=== PATIENT | male | born 1945 | race Asian ===

== ENCOUNTER 2022-07-30 08:24 | Emergency (ER) | payer MEDICARE, OTHER ==
[~2022-07-30] VITALS: Ht 167.6 cm; Wt 60.1 kg
[~2022-07-30 08:24] MED LIST: ATOR20TA65 PO; CHOL25TA4 PO; FERR325T23 PO; FOLI-130 PO; INSU100V SQ; METF-446 PO; QUET100T34 PO; RISP1TAB48 PO; RISP2TAB86 PO; SITA50 PO; TRAZ-257 PO
[2022-07-30] MEDS ORDERED: OMEG100015 PO (09:03)
[2022-07-30] MEDS ORDERED: ASCO500 PO (09:03)
[2022-07-30] MEDS ORDERED: ZINC50TA80 PO (09:03)
[2022-07-30 09:19] LABS: BASOPHILS % (AUTO) 0.4 % (0.0-2.0); EOSINOPHILS % (AUTO) 0.1 % (1.0-6.0); HEMATOCRIT 36.7 % (41-53); HEMOGLOBIN 12.2 g/dL (13.5-17.5); LYMPHOCYTES # (AUTO) 0.7 K/uL (1.0-4.8); LYMPHOCYTES % (AUTO) 6.1 % (22.0-44.0); MEAN CORPUSCULAR HEMOGLOBIN 30.7 pg (26.0-34.0); MEAN CORPUSCULAR HGB CONC 33.3 G/dL (31.0-37.0); MEAN CORPUSCULAR VOLUME 92 fL (80-100); MONOCYTES # (AUTO) 0.9 K/uL (0.1-1.0); MONOCYTES % (AUTO) 8.4 % (2.0-9.0); NEUTROPHILS # (AUTO) 9.3 K/uL (1.8-7.7); PLATELET COUNT (AUTO) 210 K/uL (150-450); RED BLOOD CELL COUNT(AUTO) 3.98 MIL/uL (4.50-5.90); RED CELL DISTRIBUTION WIDTH 13.5 % (11.5-14.5)
[2022-07-30 09:30] LABS: ANION GAP 8 mmol/L (8-16); CALCIUM, TOTAL 9.4 mg/dL (8.8-10.5); CARBON DIOXIDE 28 mmol/L (22-29); CHLORIDE 94 mmol/L (98-107); CREATININE 0.71 mg/dL (0.60-1.30); GLOMERULAR FILTR. RATE CALC > 60 mL/min (>60); GLUCOSE,RANDOM 158 mg/dL (70-110); POTASSIUM 3.4 mmol/L (3.5-5.1); SODIUM SERUM 130 mmol/L (136-145); UREA NITROGEN, BLOOD 10 mg/dL (7-18)
[2022-07-30 09:35] LABS: ALANINE AMINOTRANSFERASE 21 U/L (12-78); ALBUMIN 3.7 g/dL (3.4-5.0); ALKALINE PHOSPHATASE 54 U/L (46-116); ASPARTATE AMINOTRANSFERASE 19 U/L (15-37); BILIRUBIN,TOTAL 0.8 mg/dL (0.1-1.0); TOTAL PROTEIN, SERUM 8.2 g/dL (6.4-8.2)
[2022-07-30 10:06] LABS: APPEARANCE,URINE CLEAR (CLEAR); BILIRUBIN,URINE NEGATIVE (NEGATIVE); GLUCOSE, URINE (UA) 70-100 mg/dL (NEGATIVE); LEUKOCYTE ESTERASE ,URINE NEGATIVE (NEGATIVE); NITRATE,URINE NEGATIVE (NEGATIVE); OCCULT BLOOD,URINE TRACE (NEGATIVE); PH,URINE 5.5 (5.0-8.0); PROTEIN,URINE NEGATIVE (NEGATIVE); SPECIFIC GRAVITIY, URINE 1.006 (1.003-1.030); UROBILINOGEN,URINE <=1.0 mg/dL (<=1.0)
[2022-07-30 10:12] LABS: AMPHET/METH SCREEN,URINE NEGATIVE (NEGATIVE); BARBITURATE SCREEN, URINE NEGATIVE (NEGATIVE); BENZODIAZEPINES SCREEN,URINE NEGATIVE (NEGATIVE); CANNABINOID SCREEN,URINE NEGATIVE (NEGATIVE); COCAINE SCREEN,URINE NEGATIVE (NEGATIVE); METHADONE SCREEN, URINE NEGATIVE (NEGATIVE); OPIATE SCREEN,URINE NEGATIVE (NEGATIVE); PHENCYCLIDINE SCREEN,URINE NEGATIVE (NEGATIVE)
[2022-07-30 10:25] LABS: BACTERIA,URINE None Seen /HPF (None Seen); RBC,URINE None Seen /HPF (0-2); SQUAMOUS EPITHELIAL CELL,UR None Seen /LPF (None Seen); WBC,URINE None Seen /HPF (0-5)
[2022-07-30 15:00] VITALS: BP 146/81
== END 2022-07-30 15:32 ==
LOC: EMS 08:27
DX: M25.511 Pain in right shoulder (principal); E11.9 Type 2 diabetes mellitus without complications; I10 Essential (primary) hypertension; F20.0 Paranoid schizophrenia; W19.XXXA Unspecified fall, initial encounter; Y93.89 Activity, other specified; Y92.89 Other specified places as the place of occurrence of the external cause; Y99.8 Other external cause status
CPT/HCPCS: 99285; 70450; 71045; 80053; 82962; 84484; 85025; 36415; 73030; 93005; 81001; 80307 ×2; G0480

== ENCOUNTER 2022-08-02 15:25 | Inpatient (IN) | payer MEDICARE, MEDICAID ==
[~2022-08-02] VITALS: Ht 170.2 cm; Wt 62.7 kg
[~2022-08-02 15:25] MED LIST changes: +ASCO500 PO; +OMEG100015 PO; -RISP2TAB86 PO; +ZINC50TA80 PO
[2022-08-02 17:19] LABS: BASOPHILS % (AUTO) 0.5 % (0.0-2.0); EOSINOPHILS % (AUTO) 3.3 % (1.0-6.0); HEMATOCRIT 41.3 % (41-53); HEMOGLOBIN 13.7 g/dL (13.5-17.5); LYMPHOCYTES # (AUTO) 1.1 K/uL (1.0-4.8); LYMPHOCYTES % (AUTO) 13.4 % (22.0-44.0); MEAN CORPUSCULAR HEMOGLOBIN 30.7 pg (26.0-34.0); MEAN CORPUSCULAR HGB CONC 33.1 G/dL (31.0-37.0); MEAN CORPUSCULAR VOLUME 93 fL (80-100); MONOCYTES # (AUTO) 0.7 K/uL (0.1-1.0); MONOCYTES % (AUTO) 8.3 % (2.0-9.0); NEUTROPHILS % (AUTO) 74.5 % (40.0-70.0); PLATELET COUNT (AUTO) 352 K/uL (150-450); RED BLOOD CELL COUNT(AUTO) 4.45 MIL/uL (4.50-5.90); RED CELL DISTRIBUTION WIDTH 13.7 % (11.5-14.5)
[2022-08-02 17:21] LABS: COVID AG,FIA SOURCE NASOPHARYNGEAL
[2022-08-02 17:32] LABS: ANION GAP 9 mmol/L (8-16); CALCIUM, TOTAL 9.6 mg/dL (8.8-10.5); CARBON DIOXIDE 27 mmol/L (22-29); CHLORIDE 98 mmol/L (98-107); CREATININE 0.81 mg/dL (0.60-1.30); GLOMERULAR FILTR. RATE CALC > 60 mL/min (>60); GLUCOSE,RANDOM 147 mg/dL (70-110); POTASSIUM 3.9 mmol/L (3.5-5.1); SODIUM SERUM 134 mmol/L (136-145)
[2022-08-02 17:37] LABS: ALANINE AMINOTRANSFERASE 105 U/L (12-78); ALBUMIN 3.4 g/dL (3.4-5.0); ALKALINE PHOSPHATASE 98 U/L (46-116); ASPARTATE AMINOTRANSFERASE 50 U/L (15-37); BILIRUBIN,TOTAL 0.7 mg/dL (0.1-1.0)
[2022-08-02] MEDS ORDERED: ZOLPIDEM TARTRATE 10 MG TABLET PO PRN (18:30)
[2022-08-02] MEDS ORDERED: QUEtiapine FUMARATE 100 MG TABLET PO PRN (18:30)
[2022-08-02] MEDS ORDERED: LORazepam 2 MG TABLET PO PRN (18:30)
[2022-08-02 20:38] LABS: APPEARANCE,URINE CLEAR (CLEAR); BILIRUBIN,URINE NEGATIVE (NEGATIVE); GLUCOSE, URINE (UA) >=1000 mg/dL (NEGATIVE); KETONES,URINE 40-60 mg/dL (NEGATIVE); LEUKOCYTE ESTERASE ,URINE SMALL (NEGATIVE); NITRATE,URINE NEGATIVE (NEGATIVE); OCCULT BLOOD,URINE NEGATIVE (NEGATIVE); PROTEIN,URINE TRACE mg/dL (NEGATIVE); SPECIFIC GRAVITIY, URINE 1.029 (1.003-1.030)
[2022-08-02 20:44] LABS: AMPHET/METH SCREEN,URINE NEGATIVE (NEGATIVE); BARBITURATE SCREEN, URINE NEGATIVE (NEGATIVE); BENZODIAZEPINES SCREEN,URINE NEGATIVE (NEGATIVE); CANNABINOID SCREEN,URINE NEGATIVE (NEGATIVE); COCAINE SCREEN,URINE NEGATIVE (NEGATIVE); METHADONE SCREEN, URINE NEGATIVE (NEGATIVE); OPIATE SCREEN,URINE NEGATIVE (NEGATIVE); PHENCYCLIDINE SCREEN,URINE NEGATIVE (NEGATIVE)
[2022-08-02 20:57] LABS: BACTERIA,URINE Rare /HPF (None Seen); RBC,URINE None Seen /HPF (0-2); SQUAMOUS EPITHELIAL CELL,UR Rare /LPF (None Seen)
[2022-08-04] MEDS ORDERED: CloNIDine HCL 0.1 MG TABLET PO PRN (06:00)
[2022-08-04] MEDS ORDERED: IBUPROFEN 600 MG TABLET PO PRN (06:00)
[2022-08-04] MEDS ORDERED: DOCUSATE SODIUM 100 MG CAPSULE PO PRN (06:00)
[2022-08-04] MEDS ORDERED: PETROLATUM,WHITE 28 GM JELLY TP PRN (06:00)
[2022-08-04] MEDS ORDERED: MAGNESIUM HYDROXIDE SUSPENSION 30 ML UDCUP PO PRN (06:00)
[2022-08-04] MEDS ORDERED: DEXTROSE 50%-WATER 25 GM/50 ML SYRINGE IVP PRN (06:00)
[2022-08-04] MEDS ORDERED: OMEPRAZOLE 20 MG CAPSULE PO PRN (06:00)
[2022-08-04] MEDS ORDERED: MAG HYDROX/AL HYDROX/SIMETH ES 30 ML SUSPENSION UDCUP PO PRN (06:00)
[2022-08-04] MEDS ORDERED: BACITRACIN 28 GM OINTMENT TP PRN (06:00)
[2022-08-04] MEDS ORDERED: ONDANSETRON HCL 4 MG TABLET PO PRN (06:00)
[2022-08-04] MEDS ORDERED: ACETAMINOPHEN 325 MG TABLET PO PRN (06:00)
[2022-08-04] MEDS ORDERED: ALBUTEROL SULFATE HFA 90 MCG/PUFF 8 GM INHALER IH PRN (06:00)
[2022-08-04 06:18] VITALS: BP 109/68
[2022-08-04 06:31] LABS: GLUCOMETER DEV NAME(LOC) 3E.C; GLUCOSE,POINT OF CARE 158 MG/DL (70-110)
[2022-08-04] MEDS: INSULIN LISPRO 100 UNITS/ML SQ PRN ×3 (06:39→22:31)
[2022-08-04] MEDS: MetFORMIN HCL 500 MG TABLET PO SCH ×2 (06:47→16:41)
[2022-08-04] MEDS: FERROUS SULFATE 325 MG EC TABLET PO SCH ×2 (06:47→16:40)
[2022-08-04 08:37] VITALS: BP 133/70
[2022-08-04] MEDS: SitaGLIPtin PHOSPHATE 50 MG TABLET PO SCH (08:42)
[2022-08-04] MEDS: CHOLECALCIFEROL (VIT D3) 1,000 UNITS [25 MCG] TABLET PO SCH (08:42)
[2022-08-04] MEDS: ASCORBIC ACID 500 MG TABLET PO SCH (08:43)
[2022-08-04] MEDS: OMEGA-3/DHA/EPA/FISH OIL 1,000 MG CAPSULE PO SCH ×2 (08:51→16:50)
[2022-08-04] MEDS: FOLIC ACID 1 MG TABLET PO SCH (08:51)
[2022-08-04] MEDS ORDERED: [UNRECOGNIZED DRUG - OTHER] PO SCH (09:00)
[2022-08-04 12:26] LABS: GLUCOMETER DEV NAME(LOC) 3E.I 2; GLUCOSE,POINT OF CARE 132 MG/DL (70-110)
[2022-08-04 16:37] VITALS: BP 122/68
[2022-08-04 17:36] LABS: GLUCOMETER DEV NAME(LOC) 3E.I 2; GLUCOSE,POINT OF CARE 160 MG/DL (70-110)
[2022-08-04 20:22] VITALS: BP 137/71
[2022-08-04] MEDS: LOPERAMIDE HCL 2 MG CAPSULE PO PRN ×2 (21:10→22:32)
[2022-08-04] MEDS: ATORVASTATIN CALCIUM 20 MG TABLET PO SCH (21:10)
[2022-08-04 22:56] LABS: GLUCOMETER DEV NAME(LOC) 3E.I 2; GLUCOSE,POINT OF CARE 206 MG/DL (70-110)
[2022-08-05 06:02] LABS: GLUCOMETER DEV NAME(LOC) 3E.C; GLUCOSE,POINT OF CARE 149 MG/DL (70-110)
[2022-08-05] MEDS: FERROUS SULFATE 325 MG EC TABLET PO SCH ×2 (06:37→16:44)
[2022-08-05] MEDS: MetFORMIN HCL 500 MG TABLET PO SCH ×2 (06:37→16:45)
[2022-08-05 08:19] VITALS: BP 131/77
[2022-08-05] MEDS: ASCORBIC ACID 500 MG TABLET PO SCH (08:28)
[2022-08-05] MEDS: SitaGLIPtin PHOSPHATE 50 MG TABLET PO SCH (08:28)
[2022-08-05] MEDS: OMEGA-3/DHA/EPA/FISH OIL 1,000 MG CAPSULE PO SCH ×2 (08:31→16:53)
[2022-08-05] MEDS: FOLIC ACID 1 MG TABLET PO SCH (08:31)
[2022-08-05] MEDS: CHOLECALCIFEROL (VIT D3) 1,000 UNITS [25 MCG] TABLET PO SCH (08:31)
[2022-08-05 10:51] LABS: BASOPHILS % (AUTO) 0.5 % (0.0-2.0); EOSINOPHILS % (AUTO) 6.3 % (1.0-6.0); HEMATOCRIT 38.7 % (41-53); HEMOGLOBIN 12.9 g/dL (13.5-17.5); LYMPHOCYTES % (AUTO) 10.3 % (22.0-44.0); MEAN CORPUSCULAR HEMOGLOBIN 30.7 pg (26.0-34.0); MEAN CORPUSCULAR HGB CONC 33.5 G/dL (31.0-37.0); MEAN CORPUSCULAR VOLUME 92 fL (80-100); MONOCYTES # (AUTO) 0.8 K/uL (0.1-1.0); MONOCYTES % (AUTO) 8.6 % (2.0-9.0); NEUTROPHILS % (AUTO) 74.3 % (40.0-70.0); PLATELET COUNT (AUTO) 381 K/uL (150-450); RED BLOOD CELL COUNT(AUTO) 4.22 MIL/uL (4.50-5.90); RED CELL DISTRIBUTION WIDTH 13.3 % (11.5-14.5)
[2022-08-05 11:02] LABS: HEMOGLOBIN A1C 6.4 % (3.8-5.6)
[2022-08-05] MEDS: INSULIN LISPRO 100 UNITS/ML SQ PRN ×3 (11:10→21:15)
[2022-08-05 11:14] LABS: ALANINE AMINOTRANSFERASE 86 U/L (12-78); ALBUMIN 2.9 g/dL (3.4-5.0); ALKALINE PHOSPHATASE 80 U/L (46-116); ANION GAP 9 mmol/L (8-16); ASPARTATE AMINOTRANSFERASE 23 U/L (15-37); BILIRUBIN,TOTAL 0.4 mg/dL (0.1-1.0); CALCIUM, TOTAL 9.2 mg/dL (8.8-10.5); CARBON DIOXIDE 26 mmol/L (22-29); CHLORIDE 100 mmol/L (98-107); CHOL/HDL RATIO 2.8 (4.2-7.3); CHOLESTEROL 99 mg/dL (131-200); GLOMERULAR FILTR. RATE CALC > 60 mL/min (>60); GLUCOSE,RANDOM 210 mg/dL (70-110); HDL CHOLESTEROL 36 mg/dL (40-60); LDL CHOL (CALC.) 46 mg/dL (0-130); PHOSPHORUS 3.5 mg/dL (2.5-4.9); POTASSIUM 3.9 mmol/L (3.5-5.1); SODIUM SERUM 135 mmol/L (136-145); THYROID STIMULATING HORMONE 1.06 uIU/mL (0.36-3.74); TOTAL PROTEIN, SERUM 7.8 g/dL (6.4-8.2); TRIGLYCERIDES 85 mg/dL (15-150)
[2022-08-05 11:21] LABS: GLUCOMETER DEV NAME(LOC) 3E.I 2; GLUCOSE,POINT OF CARE 197 MG/DL (70-110)
[2022-08-05 16:35] LABS: GLUCOMETER DEV NAME(LOC) 3E.I 2; GLUCOSE,POINT OF CARE 210 MG/DL (70-110)
[2022-08-05 17:08] VITALS: BP 125/69
[2022-08-05 20:06] VITALS: BP 125/76
[2022-08-05 20:31] LABS: GLUCOMETER DEV NAME(LOC) 3E.C; GLUCOSE,POINT OF CARE 199 MG/DL (70-110)
[2022-08-05] MEDS: ATORVASTATIN CALCIUM 20 MG TABLET PO SCH (20:45)
[2022-08-05] MEDS: RisperiDONE 1 MG TABLET PO SCH (20:47)
[2022-08-05] MEDS: DIVALPROEX SODIUM 500 MG DR TABLET PO SCH (20:47)
[2022-08-06 06:01] LABS: GLUCOMETER DEV NAME(LOC) 3E.C; GLUCOSE,POINT OF CARE 145 MG/DL (70-110)
[2022-08-06] MEDS: INSULIN LISPRO 100 UNITS/ML SQ PRN ×4 (06:33→21:59)
[2022-08-06] MEDS: FERROUS SULFATE 325 MG EC TABLET PO SCH ×2 (06:40→17:08)
[2022-08-06] MEDS: MetFORMIN HCL 500 MG TABLET PO SCH ×2 (06:40→17:07)
[2022-08-06] MEDS: FOLIC ACID 1 MG TABLET PO SCH (08:35)
[2022-08-06] MEDS: ASCORBIC ACID 500 MG TABLET PO SCH (08:35)
[2022-08-06] MEDS: SitaGLIPtin PHOSPHATE 50 MG TABLET PO SCH (08:35)
[2022-08-06] MEDS: CHOLECALCIFEROL (VIT D3) 1,000 UNITS [25 MCG] TABLET PO SCH (08:35)
[2022-08-06] MEDS: OMEGA-3/DHA/EPA/FISH OIL 1,000 MG CAPSULE PO SCH ×2 (08:35→17:07)
[2022-08-06] MEDS: RisperiDONE 1 MG TABLET PO SCH ×2 (08:36→20:25)
[2022-08-06] MEDS: DIVALPROEX SODIUM 500 MG DR TABLET PO SCH ×2 (08:40→20:24)
[2022-08-06 08:46] VITALS: BP 123/66
[2022-08-06 11:31] LABS: GLUCOMETER DEV NAME(LOC) 3E.I 2; GLUCOSE,POINT OF CARE 146 MG/DL (70-110)
[2022-08-06 16:37] VITALS: BP 107/58
[2022-08-06 16:51] LABS: GLUCOMETER DEV NAME(LOC) 3E.I 2; GLUCOSE,POINT OF CARE 160 MG/DL (70-110)
[2022-08-06 20:10] VITALS: BP 117/67
[2022-08-06 20:16] LABS: GLUCOMETER DEV NAME(LOC) 3E.C; GLUCOSE,POINT OF CARE 151 MG/DL (70-110)
[2022-08-06] MEDS: ATORVASTATIN CALCIUM 20 MG TABLET PO SCH (20:25)
[2022-08-07 05:16] LABS: GLUCOMETER DEV NAME(LOC) 3E.C; GLUCOSE,POINT OF CARE 116 MG/DL (70-110)
[2022-08-07] MEDS: MetFORMIN HCL 500 MG TABLET PO SCH ×2 (06:40→17:26)
[2022-08-07] MEDS: FERROUS SULFATE 325 MG EC TABLET PO SCH ×2 (06:40→17:25)
[2022-08-07] MEDS: CHOLECALCIFEROL (VIT D3) 1,000 UNITS [25 MCG] TABLET PO SCH (08:50)
[2022-08-07] MEDS: FOLIC ACID 1 MG TABLET PO SCH (08:50)
[2022-08-07] MEDS: OMEGA-3/DHA/EPA/FISH OIL 1,000 MG CAPSULE PO SCH ×2 (08:50→17:26)
[2022-08-07] MEDS: RisperiDONE 1 MG TABLET PO SCH ×2 (08:50→20:36)
[2022-08-07] MEDS: DIVALPROEX SODIUM 500 MG DR TABLET PO SCH ×2 (08:50→20:36)
[2022-08-07] MEDS: ASCORBIC ACID 500 MG TABLET PO SCH (08:51)
[2022-08-07] MEDS: SitaGLIPtin PHOSPHATE 50 MG TABLET PO SCH (08:51)
[2022-08-07 10:10] VITALS: BP 114/68
[2022-08-07 11:26] LABS: GLUCOMETER DEV NAME(LOC) 3E.C; GLUCOSE,POINT OF CARE 132 MG/DL (70-110)
[2022-08-07 16:06] LABS: GLUCOMETER DEV NAME(LOC) 3E.C; GLUCOSE,POINT OF CARE 175 MG/DL (70-110)
[2022-08-07] MEDS: INSULIN LISPRO 100 UNITS/ML SQ PRN ×2 (17:27→21:07)
[2022-08-07 17:58] VITALS: BP 108/63
[2022-08-07 20:21] LABS: GLUCOMETER DEV NAME(LOC) 3E.C; GLUCOSE,POINT OF CARE 150 MG/DL (70-110)
[2022-08-07 20:30] VITALS: BP 141/75
[2022-08-07] MEDS: ATORVASTATIN CALCIUM 20 MG TABLET PO SCH (20:36)
[2022-08-07] MEDS: LOPERAMIDE HCL 2 MG CAPSULE PO PRN (20:36)
[2022-08-08] MEDS: LOPERAMIDE HCL 2 MG CAPSULE PO PRN (01:19)
[2022-08-08 05:46] LABS: GLUCOMETER DEV NAME(LOC) 3E.C; GLUCOSE,POINT OF CARE 133 MG/DL (70-110)
[2022-08-08] MEDS: MetFORMIN HCL 500 MG TABLET PO SCH ×2 (06:34→17:11)
[2022-08-08] MEDS: FERROUS SULFATE 325 MG EC TABLET PO SCH ×2 (06:34→17:11)
[2022-08-08 06:50] LABS: COVID AG,FIA SOURCE NASAL SWAB
[2022-08-08 08:31] VITALS: BP 103/66
[2022-08-08] MEDS: OMEGA-3/DHA/EPA/FISH OIL 1,000 MG CAPSULE PO SCH ×2 (08:57→17:11)
[2022-08-08] MEDS: ASCORBIC ACID 500 MG TABLET PO SCH (08:57)
[2022-08-08] MEDS: SitaGLIPtin PHOSPHATE 50 MG TABLET PO SCH (08:57)
[2022-08-08] MEDS: DIVALPROEX SODIUM 500 MG DR TABLET PO SCH ×2 (08:57→20:41)
[2022-08-08] MEDS: FOLIC ACID 1 MG TABLET PO SCH (08:57)
[2022-08-08] MEDS: RisperiDONE 1 MG TABLET PO SCH ×2 (08:57→20:41)
[2022-08-08] MEDS: CHOLECALCIFEROL (VIT D3) 1,000 UNITS [25 MCG] TABLET PO SCH (08:58)
[2022-08-08 12:06] LABS: GLUCOMETER DEV NAME(LOC) 3E.C; GLUCOSE,POINT OF CARE 135 MG/DL (70-110)
[2022-08-08 16:41] LABS: GLUCOMETER DEV NAME(LOC) 3E.C; GLUCOSE,POINT OF CARE 184 MG/DL (70-110)
[2022-08-08] MEDS: INSULIN LISPRO 100 UNITS/ML SQ PRN ×2 (17:10→21:18)
[2022-08-08] MEDS: ATORVASTATIN CALCIUM 20 MG TABLET PO SCH (20:41)
[2022-08-08 21:08] VITALS: BP 94/60
[2022-08-08 21:41] LABS: GLUCOMETER DEV NAME(LOC) 3E.C; GLUCOSE,POINT OF CARE 139 MG/DL (70-110)
[2022-08-09] MEDS: MetFORMIN HCL 500 MG TABLET PO SCH ×2 (06:33→17:42)
[2022-08-09] MEDS: INSULIN LISPRO 100 UNITS/ML SQ PRN ×4 (06:34→20:41)
[2022-08-09] MEDS: FERROUS SULFATE 325 MG EC TABLET PO SCH ×2 (06:34→17:42)
[2022-08-09 07:01] LABS: GLUCOMETER DEV NAME(LOC) 3E.C; GLUCOSE,POINT OF CARE 124 MG/DL (70-110)
[2022-08-09] MEDS: SitaGLIPtin PHOSPHATE 50 MG TABLET PO SCH (08:12)
[2022-08-09] MEDS: RisperiDONE 1 MG TABLET PO SCH ×2 (08:14→20:17)
[2022-08-09] MEDS: ASCORBIC ACID 500 MG TABLET PO SCH (08:14)
[2022-08-09] MEDS: CHOLECALCIFEROL (VIT D3) 1,000 UNITS [25 MCG] TABLET PO SCH (08:14)
[2022-08-09] MEDS: DIVALPROEX SODIUM 500 MG DR TABLET PO SCH ×2 (08:14→20:17)
[2022-08-09] MEDS: FOLIC ACID 1 MG TABLET PO SCH (08:28)
[2022-08-09] MEDS: OMEGA-3/DHA/EPA/FISH OIL 1,000 MG CAPSULE PO SCH ×2 (08:28→17:16)
[2022-08-09 10:00] VITALS: BP 117/63
[2022-08-09 11:41] LABS: GLUCOMETER DEV NAME(LOC) 3E.I 2; GLUCOSE,POINT OF CARE 150 MG/DL (70-110)
[2022-08-09 16:56] LABS: GLUCOMETER DEV NAME(LOC) 3E.I 2; GLUCOSE,POINT OF CARE 165 MG/DL (70-110)
[2022-08-09 17:42] VITALS: BP 110/60
[2022-08-09] MEDS: ATORVASTATIN CALCIUM 20 MG TABLET PO SCH (20:17)
[2022-08-09 21:20] VITALS: BP 128/76
[2022-08-09 21:21] LABS: GLUCOMETER DEV NAME(LOC) 3E.C; GLUCOSE,POINT OF CARE 122 MG/DL (70-110)
[2022-08-10 06:16] LABS: GLUCOMETER DEV NAME(LOC) 3E.C; GLUCOSE,POINT OF CARE 117 MG/DL (70-110)
[2022-08-10] MEDS: FERROUS SULFATE 325 MG EC TABLET PO SCH ×2 (06:41→17:43)
[2022-08-10] MEDS: MetFORMIN HCL 500 MG TABLET PO SCH ×2 (06:41→17:43)
[2022-08-10] MEDS: RisperiDONE 1 MG TABLET PO SCH ×2 (09:18→20:54)
[2022-08-10] MEDS: DIVALPROEX SODIUM 500 MG DR TABLET PO SCH ×2 (09:18→20:54)
[2022-08-10] MEDS: CHOLECALCIFEROL (VIT D3) 1,000 UNITS [25 MCG] TABLET PO SCH (09:18)
[2022-08-10] MEDS: ASCORBIC ACID 500 MG TABLET PO SCH (09:19)
[2022-08-10] MEDS: SitaGLIPtin PHOSPHATE 50 MG TABLET PO SCH (09:19)
[2022-08-10] MEDS: OMEGA-3/DHA/EPA/FISH OIL 1,000 MG CAPSULE PO SCH ×2 (09:27→17:41)
[2022-08-10] MEDS: FOLIC ACID 1 MG TABLET PO SCH (09:28)
[2022-08-10 09:49] VITALS: BP 125/57
[2022-08-10] MEDS: INSULIN LISPRO 100 UNITS/ML SQ PRN ×3 (11:53→20:55)
[2022-08-10 12:01] LABS: GLUCOMETER DEV NAME(LOC) 3E.I 2; GLUCOSE,POINT OF CARE 134 MG/DL (70-110)
[2022-08-10 16:00] VITALS: BP 110/68
[2022-08-10 16:02] VITALS: BP 110/68
[2022-08-10 17:26] LABS: GLUCOMETER DEV NAME(LOC) 3E.I 2; GLUCOSE,POINT OF CARE 152 MG/DL (70-110)
[2022-08-10] MEDS: ATORVASTATIN CALCIUM 20 MG TABLET PO SCH (20:54)
[2022-08-10 21:16] LABS: GLUCOMETER DEV NAME(LOC) 3E.C; GLUCOSE,POINT OF CARE 142 MG/DL (70-110)
[2022-08-11] MEDS: FERROUS SULFATE 325 MG EC TABLET PO SCH ×2 (06:46→16:16)
[2022-08-11] MEDS: MetFORMIN HCL 500 MG TABLET PO SCH ×2 (06:46→16:17)
[2022-08-11] MEDS: INSULIN LISPRO 100 UNITS/ML SQ PRN ×2 (06:47→17:45)
[2022-08-11 07:26] LABS: GLUCOMETER DEV NAME(LOC) 3E.C; GLUCOSE,POINT OF CARE 121 MG/DL (70-110)
[2022-08-11] MEDS: CHOLECALCIFEROL (VIT D3) 1,000 UNITS [25 MCG] TABLET PO SCH (08:34)
[2022-08-11] MEDS: SitaGLIPtin PHOSPHATE 50 MG TABLET PO SCH (08:34)
[2022-08-11] MEDS: RisperiDONE 1 MG TABLET PO SCH ×2 (08:34→21:30)
[2022-08-11] MEDS: DIVALPROEX SODIUM 500 MG DR TABLET PO SCH ×2 (08:34→21:30)
[2022-08-11] MEDS: ASCORBIC ACID 500 MG TABLET PO SCH (08:35)
[2022-08-11] MEDS: FOLIC ACID 1 MG TABLET PO SCH (09:00)
[2022-08-11] MEDS: OMEGA-3/DHA/EPA/FISH OIL 1,000 MG CAPSULE PO SCH ×2 (09:00→16:16)
[2022-08-11 10:28] VITALS: BP 133/79
[2022-08-11 12:16] LABS: GLUCOMETER DEV NAME(LOC) 3E.I 2; GLUCOSE,POINT OF CARE 131 MG/DL (70-110)
[2022-08-11 16:25] VITALS: BP 135/73
[2022-08-11 17:11] LABS: GLUCOMETER DEV NAME(LOC) 3E.I 2; GLUCOSE,POINT OF CARE 150 MG/DL (70-110)
[2022-08-11 21:06] VITALS: BP 114/70
[2022-08-11 21:20] LABS: GLUCOMETER DEV NAME(LOC) 3E.C; GLUCOSE,POINT OF CARE 132 MG/DL (70-110)
[2022-08-11] MEDS: ATORVASTATIN CALCIUM 20 MG TABLET PO SCH (21:30)
[2022-08-12 06:11] LABS: GLUCOMETER DEV NAME(LOC) 3E.C; GLUCOSE,POINT OF CARE 106 MG/DL (70-110)
[2022-08-12] MEDS: MetFORMIN HCL 500 MG TABLET PO SCH ×2 (07:01→17:45)
[2022-08-12] MEDS: FERROUS SULFATE 325 MG EC TABLET PO SCH ×2 (07:01→17:45)
[2022-08-12] MEDS: CHOLECALCIFEROL (VIT D3) 1,000 UNITS [25 MCG] TABLET PO SCH (08:47)
[2022-08-12] MEDS: SitaGLIPtin PHOSPHATE 50 MG TABLET PO SCH (08:47)
[2022-08-12] MEDS: FOLIC ACID 1 MG TABLET PO SCH (08:47)
[2022-08-12] MEDS: RisperiDONE 1 MG TABLET PO SCH ×2 (08:47→21:19)
[2022-08-12] MEDS: DIVALPROEX SODIUM 500 MG DR TABLET PO SCH ×2 (08:47→21:19)
[2022-08-12] MEDS: OMEGA-3/DHA/EPA/FISH OIL 1,000 MG CAPSULE PO SCH ×2 (08:47→17:45)
[2022-08-12 09:12] VITALS: BP 114/69
[2022-08-12] MEDS: ASCORBIC ACID 500 MG TABLET PO SCH (09:37)
[2022-08-12 11:32] LABS: GLUCOMETER DEV NAME(LOC) 3E.C; GLUCOSE,POINT OF CARE 133 MG/DL (70-110)
[2022-08-12 16:06] LABS: GLUCOMETER DEV NAME(LOC) 3E.C; GLUCOSE,POINT OF CARE 158 MG/DL (70-110)
[2022-08-12 17:00] VITALS: BP 108/65
[2022-08-12] MEDS: INSULIN LISPRO 100 UNITS/ML SQ PRN (18:06)
[2022-08-12 20:56] LABS: GLUCOMETER DEV NAME(LOC) 3E.C; GLUCOSE,POINT OF CARE 134 MG/DL (70-110)
[2022-08-12] MEDS: ATORVASTATIN CALCIUM 20 MG TABLET PO SCH (21:18)
[2022-08-12 22:44] VITALS: BP 126/69
[2022-08-13 05:56] LABS: GLUCOMETER DEV NAME(LOC) 3E.C; GLUCOSE,POINT OF CARE 122 MG/DL (70-110)
[2022-08-13] MEDS: FERROUS SULFATE 325 MG EC TABLET PO SCH ×2 (06:41→17:05)
[2022-08-13] MEDS: MetFORMIN HCL 500 MG TABLET PO SCH ×2 (06:41→17:04)
[2022-08-13 08:00] VITALS: BP 112/63
[2022-08-13] MEDS: RisperiDONE 1 MG TABLET PO SCH ×2 (08:29→21:09)
[2022-08-13] MEDS: DIVALPROEX SODIUM 500 MG DR TABLET PO SCH ×2 (08:29→21:09)
[2022-08-13] MEDS: CHOLECALCIFEROL (VIT D3) 1,000 UNITS [25 MCG] TABLET PO SCH (08:29)
[2022-08-13] MEDS: OMEGA-3/DHA/EPA/FISH OIL 1,000 MG CAPSULE PO SCH ×2 (08:29→17:05)
[2022-08-13] MEDS: FOLIC ACID 1 MG TABLET PO SCH (08:29)
[2022-08-13] MEDS: SitaGLIPtin PHOSPHATE 50 MG TABLET PO SCH (08:30)
[2022-08-13] MEDS: ASCORBIC ACID 500 MG TABLET PO SCH (08:31)
[2022-08-13] MEDS: MULTIVITAMINS WITH MINERALS, THERAPEUTIC TABLET PO SCH (08:31)
[2022-08-13 11:21] LABS: GLUCOMETER DEV NAME(LOC) 3E.I 2; GLUCOSE,POINT OF CARE 120 MG/DL (70-110)
[2022-08-13 16:00] VITALS: BP 130/65
[2022-08-13 16:01] LABS: GLUCOMETER DEV NAME(LOC) 3E.I 2; GLUCOSE,POINT OF CARE 135 MG/DL (70-110)
[2022-08-13 20:27] LABS: GLUCOMETER DEV NAME(LOC) 3E.C; GLUCOSE,POINT OF CARE 149 MG/DL (70-110)
[2022-08-13 21:07] VITALS: BP 145/80
[2022-08-13] MEDS: ATORVASTATIN CALCIUM 20 MG TABLET PO SCH (21:09)
[2022-08-13] MEDS: INSULIN LISPRO 100 UNITS/ML SQ PRN (21:18)
[2022-08-14 05:36] LABS: GLUCOMETER DEV NAME(LOC) 3E.C; GLUCOSE,POINT OF CARE 122 MG/DL (70-110)
[2022-08-14] MEDS: FERROUS SULFATE 325 MG EC TABLET PO SCH ×2 (06:52→16:28)
[2022-08-14] MEDS: MetFORMIN HCL 500 MG TABLET PO SCH ×2 (06:52→16:28)
[2022-08-14] MEDS: INSULIN LISPRO 100 UNITS/ML SQ PRN ×4 (07:00→21:10)
[2022-08-14 08:35] VITALS: BP 129/62
[2022-08-14 09:00] VITALS: BP 129/62
[2022-08-14] MEDS: ASCORBIC ACID 500 MG TABLET PO SCH (10:42)
[2022-08-14] MEDS: SitaGLIPtin PHOSPHATE 50 MG TABLET PO SCH (10:42)
[2022-08-14] MEDS: MULTIVITAMINS WITH MINERALS, THERAPEUTIC TABLET PO SCH (10:44)
[2022-08-14] MEDS: RisperiDONE 1 MG TABLET PO SCH ×2 (10:44→20:48)
[2022-08-14] MEDS: OMEGA-3/DHA/EPA/FISH OIL 1,000 MG CAPSULE PO SCH ×2 (10:45→16:27)
[2022-08-14] MEDS: FOLIC ACID 1 MG TABLET PO SCH (10:45)
[2022-08-14] MEDS: DIVALPROEX SODIUM 500 MG DR TABLET PO SCH ×2 (10:45→20:48)
[2022-08-14] MEDS: CHOLECALCIFEROL (VIT D3) 1,000 UNITS [25 MCG] TABLET PO SCH (10:50)
[2022-08-14 12:36] LABS: GLUCOMETER DEV NAME(LOC) 3E.C; GLUCOSE,POINT OF CARE 155 MG/DL (70-110)
[2022-08-14 17:11] LABS: GLUCOMETER DEV NAME(LOC) 3E.C; GLUCOSE,POINT OF CARE 177 MG/DL (70-110)
[2022-08-14 18:36] VITALS: BP 112/67
[2022-08-14 20:46] LABS: GLUCOMETER DEV NAME(LOC) 3E.C; GLUCOSE,POINT OF CARE 105 MG/DL (70-110)
[2022-08-14] MEDS: ATORVASTATIN CALCIUM 20 MG TABLET PO SCH (20:48)
[2022-08-15 06:31] LABS: GLUCOMETER DEV NAME(LOC) 3E.C; GLUCOSE,POINT OF CARE 115 MG/DL (70-110)
[2022-08-15] MEDS: INSULIN LISPRO 100 UNITS/ML SQ PRN ×3 (06:35→21:03)
[2022-08-15] MEDS: FERROUS SULFATE 325 MG EC TABLET PO SCH ×2 (06:45→16:52)
[2022-08-15] MEDS: MetFORMIN HCL 500 MG TABLET PO SCH ×2 (06:45→16:52)
[2022-08-15 06:50] LABS: COVID AG,FIA SOURCE NASAL SWAB
[2022-08-15 09:00] VITALS: BP 110/71
[2022-08-15] MEDS: MULTIVITAMINS WITH MINERALS, THERAPEUTIC TABLET PO SCH (09:16)
[2022-08-15] MEDS: SitaGLIPtin PHOSPHATE 50 MG TABLET PO SCH (09:17)
[2022-08-15] MEDS: CHOLECALCIFEROL (VIT D3) 1,000 UNITS [25 MCG] TABLET PO SCH (09:17)
[2022-08-15] MEDS: RisperiDONE 1 MG TABLET PO SCH ×2 (09:17→20:37)
[2022-08-15] MEDS: ASCORBIC ACID 500 MG TABLET PO SCH (09:17)
[2022-08-15] MEDS: DIVALPROEX SODIUM 500 MG DR TABLET PO SCH ×2 (09:18→20:37)
[2022-08-15] MEDS: OMEGA-3/DHA/EPA/FISH OIL 1,000 MG CAPSULE PO SCH ×2 (09:35→16:52)
[2022-08-15] MEDS: FOLIC ACID 1 MG TABLET PO SCH (09:36)
[2022-08-15 12:16] LABS: GLUCOMETER DEV NAME(LOC) 3E.C; GLUCOSE,POINT OF CARE 147 MG/DL (70-110)
[2022-08-15 16:14] VITALS: BP 133/75
[2022-08-15 16:31] LABS: GLUCOMETER DEV NAME(LOC) 3E.C; GLUCOSE,POINT OF CARE 115 MG/DL (70-110)
[2022-08-15 20:13] VITALS: BP 123/77
[2022-08-15] MEDS: ATORVASTATIN CALCIUM 20 MG TABLET PO SCH (20:37)
[2022-08-15 21:26] LABS: GLUCOMETER DEV NAME(LOC) 3E.C; GLUCOSE,POINT OF CARE 122 MG/DL (70-110)
[2022-08-16 06:36] LABS: GLUCOMETER DEV NAME(LOC) 3E.C; GLUCOSE,POINT OF CARE 126 MG/DL (70-110)
[2022-08-16] MEDS: FERROUS SULFATE 325 MG EC TABLET PO SCH ×2 (06:40→16:20)
[2022-08-16] MEDS: MetFORMIN HCL 500 MG TABLET PO SCH ×2 (06:41→16:20)
[2022-08-16] MEDS: INSULIN LISPRO 100 UNITS/ML SQ PRN ×3 (06:42→22:40)
[2022-08-16 09:15] VITALS: BP 124/69
[2022-08-16] MEDS: SitaGLIPtin PHOSPHATE 50 MG TABLET PO SCH (10:22)
[2022-08-16] MEDS: ASCORBIC ACID 500 MG TABLET PO SCH (10:22)
[2022-08-16] MEDS: MULTIVITAMINS WITH MINERALS, THERAPEUTIC TABLET PO SCH (10:22)
[2022-08-16] MEDS: CHOLECALCIFEROL (VIT D3) 1,000 UNITS [25 MCG] TABLET PO SCH (10:22)
[2022-08-16] MEDS: DIVALPROEX SODIUM 500 MG DR TABLET PO SCH ×2 (10:22→20:41)
[2022-08-16] MEDS: RisperiDONE 1 MG TABLET PO SCH ×2 (10:22→20:41)
[2022-08-16] MEDS: OMEGA-3/DHA/EPA/FISH OIL 1,000 MG CAPSULE PO SCH ×2 (10:32→16:20)
[2022-08-16] MEDS: FOLIC ACID 1 MG TABLET PO SCH (10:32)
[2022-08-16 11:31] LABS: GLUCOMETER DEV NAME(LOC) 3E.I 2; GLUCOSE,POINT OF CARE 133 MG/DL (70-110)
[2022-08-16 16:36] VITALS: BP 115/62
[2022-08-16 20:20] LABS: GLUCOMETER DEV NAME(LOC) 3E.C; GLUCOSE,POINT OF CARE 132 MG/DL (70-110)
[2022-08-16] MEDS: ATORVASTATIN CALCIUM 20 MG TABLET PO SCH (20:41)
[2022-08-16 20:45] VITALS: BP 109/64
[2022-08-17 06:37] LABS: GLUCOMETER DEV NAME(LOC) 3E.C; GLUCOSE,POINT OF CARE 146 MG/DL (70-110)
[2022-08-17] MEDS: MetFORMIN HCL 500 MG TABLET PO SCH ×2 (06:40→16:20)
[2022-08-17] MEDS: FERROUS SULFATE 325 MG EC TABLET PO SCH ×2 (06:40→16:20)
[2022-08-17] MEDS: INSULIN LISPRO 100 UNITS/ML SQ PRN ×3 (06:57→21:15)
[2022-08-17 09:10] VITALS: BP 137/75
[2022-08-17] MEDS: SitaGLIPtin PHOSPHATE 50 MG TABLET PO SCH (09:16)
[2022-08-17] MEDS: ASCORBIC ACID 500 MG TABLET PO SCH (09:17)
[2022-08-17] MEDS: RisperiDONE 1 MG TABLET PO SCH ×2 (09:19→20:55)
[2022-08-17] MEDS: CHOLECALCIFEROL (VIT D3) 1,000 UNITS [25 MCG] TABLET PO SCH (09:20)
[2022-08-17] MEDS: DIVALPROEX SODIUM 500 MG DR TABLET PO SCH ×2 (09:20→20:55)
[2022-08-17] MEDS: MULTIVITAMINS WITH MINERALS, THERAPEUTIC TABLET PO SCH (09:20)
[2022-08-17] MEDS: FOLIC ACID 1 MG TABLET PO SCH (09:29)
[2022-08-17] MEDS: OMEGA-3/DHA/EPA/FISH OIL 1,000 MG CAPSULE PO SCH ×2 (09:29→16:20)
[2022-08-17 11:51] LABS: GLUCOMETER DEV NAME(LOC) 3E.I 2; GLUCOSE,POINT OF CARE 144 MG/DL (70-110)
[2022-08-17 12:00] VITALS: BP 129/71
[2022-08-17 17:12] LABS: GLUCOMETER DEV NAME(LOC) 3E.I 2; GLUCOSE,POINT OF CARE 127 MG/DL (70-110)
[2022-08-17 17:19] VITALS: BP 132/74
[2022-08-17 20:20] VITALS: BP 135/80
[2022-08-17 20:26] LABS: GLUCOMETER DEV NAME(LOC) 3E.C; GLUCOSE,POINT OF CARE 155 MG/DL (70-110)
[2022-08-17] MEDS: ATORVASTATIN CALCIUM 20 MG TABLET PO SCH (20:55)
[2022-08-18 06:22] LABS: GLUCOMETER DEV NAME(LOC) 3E.C; GLUCOSE,POINT OF CARE 135 MG/DL (70-110)
[2022-08-18] MEDS: INSULIN LISPRO 100 UNITS/ML SQ PRN ×4 (06:38→21:10)
[2022-08-18] MEDS: FERROUS SULFATE 325 MG EC TABLET PO SCH ×2 (06:44→16:38)
[2022-08-18] MEDS: MetFORMIN HCL 500 MG TABLET PO SCH ×2 (06:44→16:38)
[2022-08-18 08:00] VITALS: BP 115/67
[2022-08-18] MEDS: MULTIVITAMINS WITH MINERALS, THERAPEUTIC TABLET PO SCH (08:54)
[2022-08-18] MEDS: CHOLECALCIFEROL (VIT D3) 1,000 UNITS [25 MCG] TABLET PO SCH (08:55)
[2022-08-18] MEDS: OMEGA-3/DHA/EPA/FISH OIL 1,000 MG CAPSULE PO SCH ×2 (08:55→16:38)
[2022-08-18] MEDS: SitaGLIPtin PHOSPHATE 50 MG TABLET PO SCH (08:56)
[2022-08-18] MEDS: RisperiDONE 1 MG TABLET PO SCH ×2 (08:56→21:00)
[2022-08-18] MEDS: ASCORBIC ACID 500 MG TABLET PO SCH (08:56)
[2022-08-18] MEDS: DIVALPROEX SODIUM 500 MG DR TABLET PO SCH ×2 (08:57→20:59)
[2022-08-18] MEDS: FOLIC ACID 1 MG TABLET PO SCH (08:57)
[2022-08-18 17:22] LABS: GLUCOMETER DEV NAME(LOC) 3E.I 2; GLUCOSE,POINT OF CARE 122 MG/DL (70-110)
[2022-08-18 20:56] LABS: GLUCOMETER DEV NAME(LOC) 3E.C; GLUCOSE,POINT OF CARE 151 MG/DL (70-110)
[2022-08-18] MEDS: ATORVASTATIN CALCIUM 20 MG TABLET PO SCH (21:00)
[2022-08-18 21:14] VITALS: BP 131/76
[2022-08-19 05:41] LABS: GLUCOMETER DEV NAME(LOC) 3E.C; GLUCOSE,POINT OF CARE 157 MG/DL (70-110)
[2022-08-19] MEDS: MetFORMIN HCL 500 MG TABLET PO SCH ×2 (06:58→16:35)
[2022-08-19] MEDS: FERROUS SULFATE 325 MG EC TABLET PO SCH ×2 (06:58→16:35)
[2022-08-19] MEDS: INSULIN LISPRO 100 UNITS/ML SQ PRN ×4 (07:01→21:24)
[2022-08-19 09:02] VITALS: BP 140/82
[2022-08-19] MEDS: SitaGLIPtin PHOSPHATE 50 MG TABLET PO SCH (09:06)
[2022-08-19] MEDS: RisperiDONE 1 MG TABLET PO SCH ×2 (09:06→20:45)
[2022-08-19] MEDS: FOLIC ACID 1 MG TABLET PO SCH (09:06)
[2022-08-19] MEDS: DIVALPROEX SODIUM 500 MG DR TABLET PO SCH ×2 (09:06→20:45)
[2022-08-19] MEDS: OMEGA-3/DHA/EPA/FISH OIL 1,000 MG CAPSULE PO SCH ×2 (09:06→16:36)
[2022-08-19] MEDS: MULTIVITAMINS WITH MINERALS, THERAPEUTIC TABLET PO SCH (09:06)
[2022-08-19] MEDS: ASCORBIC ACID 500 MG TABLET PO SCH (09:07)
[2022-08-19] MEDS: CHOLECALCIFEROL (VIT D3) 1,000 UNITS [25 MCG] TABLET PO SCH (09:09)
[2022-08-19 12:16] LABS: GLUCOMETER DEV NAME(LOC) 3E.I 2; GLUCOSE,POINT OF CARE 146 MG/DL (70-110)
[2022-08-19 17:26] LABS: GLUCOMETER DEV NAME(LOC) 3E.I 2; GLUCOSE,POINT OF CARE 203 MG/DL (70-110)
[2022-08-19 20:31] LABS: GLUCOMETER DEV NAME(LOC) 3E.C; GLUCOSE,POINT OF CARE 155 MG/DL (70-110)
[2022-08-19] MEDS ORDERED: DIVA-112 PO (20:43)
[2022-08-19] MEDS ORDERED: RISP1TAB98 PO (20:43)
[2022-08-19] MEDS: ATORVASTATIN CALCIUM 20 MG TABLET PO SCH (20:45)
[2022-08-19 20:53] VITALS: BP 136/77
[2022-08-20 06:31] LABS: GLUCOMETER DEV NAME(LOC) 3E.C; GLUCOSE,POINT OF CARE 141 MG/DL (70-110)
[2022-08-20] MEDS: INSULIN LISPRO 100 UNITS/ML SQ PRN ×3 (06:43→21:06)
[2022-08-20] MEDS: MetFORMIN HCL 500 MG TABLET PO SCH ×2 (06:48→18:07)
[2022-08-20] MEDS: FERROUS SULFATE 325 MG EC TABLET PO SCH ×3 (06:48→18:07)
[2022-08-20 08:41] VITALS: BP 134/73
[2022-08-20 09:11] LABS: BASOPHILS % (AUTO) 0.6 % (0.0-2.0); EOSINOPHILS % (AUTO) 3.1 % (1.0-6.0); HEMATOCRIT 40.6 % (41-53); HEMOGLOBIN 13.4 g/dL (13.5-17.5); LYMPHOCYTES # (AUTO) 0.8 K/uL (1.0-4.8); MEAN CORPUSCULAR HEMOGLOBIN 30.3 pg (26.0-34.0); MEAN CORPUSCULAR HGB CONC 32.9 G/dL (31.0-37.0); MEAN CORPUSCULAR VOLUME 92 fL (80-100); MONOCYTES # (AUTO) 0.9 K/uL (0.1-1.0); MONOCYTES % (AUTO) 12.5 % (2.0-9.0); NEUTROPHILS # (AUTO) 5.5 K/uL (1.8-7.7); NEUTROPHILS % (AUTO) 72.8 % (40.0-70.0); PLATELET COUNT (AUTO) 307 K/uL (150-450); RED BLOOD CELL COUNT(AUTO) 4.42 MIL/uL (4.50-5.90); RED CELL DISTRIBUTION WIDTH 13.7 % (11.5-14.5)
[2022-08-20 09:40] LABS: ALANINE AMINOTRANSFERASE 26 U/L (12-78); ALBUMIN 2.3 g/dL (3.4-5.0); ALKALINE PHOSPHATASE 62 U/L (46-116); ANION GAP 9 mmol/L (8-16); ASPARTATE AMINOTRANSFERASE 18 U/L (15-37); BILIRUBIN,TOTAL 0.4 mg/dL (0.1-1.0); CALCIUM, TOTAL 9.2 mg/dL (8.8-10.5); CARBON DIOXIDE 27 mmol/L (22-29); CHLORIDE 100 mmol/L (98-107); CREATININE 1.02 mg/dL (0.60-1.30); GLOMERULAR FILTR. RATE CALC > 60 mL/min (>60); GLUCOSE,RANDOM 120 mg/dL (70-110); SODIUM SERUM 136 mmol/L (136-145); TOTAL PROTEIN, SERUM 8.5 g/dL (6.4-8.2)
[2022-08-20] MEDS: MULTIVITAMINS WITH MINERALS, THERAPEUTIC TABLET PO SCH (09:56)
[2022-08-20] MEDS: SitaGLIPtin PHOSPHATE 50 MG TABLET PO SCH (09:56)
[2022-08-20] MEDS: RisperiDONE 1 MG TABLET PO SCH ×2 (09:56→21:00)
[2022-08-20] MEDS: CHOLECALCIFEROL (VIT D3) 1,000 UNITS [25 MCG] TABLET PO SCH (09:56)
[2022-08-20] MEDS: ASCORBIC ACID 500 MG TABLET PO SCH (09:58)
[2022-08-20] MEDS: DIVALPROEX SODIUM 500 MG DR TABLET PO SCH ×2 (09:59→21:00)
[2022-08-20] MEDS: OMEGA-3/DHA/EPA/FISH OIL 1,000 MG CAPSULE PO SCH ×2 (10:06→18:07)
[2022-08-20] MEDS: FOLIC ACID 1 MG TABLET PO SCH (10:07)
[2022-08-20 11:37] LABS: GLUCOMETER DEV NAME(LOC) 3E.C; GLUCOSE,POINT OF CARE 190 MG/DL (70-110)
[2022-08-20] MEDS: CIPROFLOXACIN HCL 500 MG TABLET PO SCH ×2 (14:41→18:08)
[2022-08-20 16:56] LABS: GLUCOMETER DEV NAME(LOC) 3E.C; GLUCOSE,POINT OF CARE 130 MG/DL (70-110)
[2022-08-20 18:06] LABS: APPEARANCE,URINE CLEAR (CLEAR); BILIRUBIN,URINE NEGATIVE (NEGATIVE); GLUCOSE, URINE (UA) 70-100 mg/dL (NEGATIVE); LEUKOCYTE ESTERASE ,URINE NEGATIVE (NEGATIVE); NITRATE,URINE NEGATIVE (NEGATIVE); OCCULT BLOOD,URINE LARGE (NEGATIVE); PROTEIN,URINE 30-70 mg/dL (NEGATIVE); SPECIFIC GRAVITIY, URINE 1.035 (1.003-1.030); UROBILINOGEN,URINE <=1.0 mg/dL (<=1.0)
[2022-08-20 18:35] LABS: BACTERIA,URINE None Seen /HPF (None Seen); RBC,URINE 26-50 /HPF (0-2); WBC,URINE 0-2 /HPF (0-5)
[2022-08-20 20:15] VITALS: BP 125/70
[2022-08-20 20:51] LABS: GLUCOMETER DEV NAME(LOC) 3E.C; GLUCOSE,POINT OF CARE 176 MG/DL (70-110)
[2022-08-20] MEDS: ATORVASTATIN CALCIUM 20 MG TABLET PO SCH (21:00)
[2022-08-21 05:42] LABS: GLUCOMETER DEV NAME(LOC) 3E.C; GLUCOSE,POINT OF CARE 137 MG/DL (70-110)
[2022-08-21] MEDS: FERROUS SULFATE 325 MG EC TABLET PO SCH ×2 (07:00→18:18)
[2022-08-21] MEDS: MetFORMIN HCL 500 MG TABLET PO SCH ×2 (07:01→18:17)
[2022-08-21] MEDS: INSULIN LISPRO 100 UNITS/ML SQ PRN ×3 (07:17→17:41)
[2022-08-21 08:00] VITALS: BP 142/83
[2022-08-21] MEDS: SitaGLIPtin PHOSPHATE 50 MG TABLET PO SCH (10:45)
[2022-08-21] MEDS: DIVALPROEX SODIUM 500 MG DR TABLET PO SCH ×2 (10:45→21:06)
[2022-08-21] MEDS: CIPROFLOXACIN HCL 500 MG TABLET PO SCH ×2 (10:45→18:17)
[2022-08-21] MEDS: ASCORBIC ACID 500 MG TABLET PO SCH (10:45)
[2022-08-21] MEDS: RisperiDONE 1 MG TABLET PO SCH ×2 (10:45→21:06)
[2022-08-21] MEDS: CHOLECALCIFEROL (VIT D3) 1,000 UNITS [25 MCG] TABLET PO SCH (10:45)
[2022-08-21] MEDS: OMEGA-3/DHA/EPA/FISH OIL 1,000 MG CAPSULE PO SCH ×2 (10:45→18:20)
[2022-08-21] MEDS: MULTIVITAMINS WITH MINERALS, THERAPEUTIC TABLET PO SCH (10:45)
[2022-08-21] MEDS: FOLIC ACID 1 MG TABLET PO SCH (10:45)
[2022-08-21 11:56] LABS: GLUCOMETER DEV NAME(LOC) 3E.C; GLUCOSE,POINT OF CARE 177 MG/DL (70-110)
[2022-08-21 17:52] LABS: GLUCOMETER DEV NAME(LOC) 3E.C; GLUCOSE,POINT OF CARE 171 MG/DL (70-110)
[2022-08-21 20:12] VITALS: BP 121/72
[2022-08-21] MEDS: ATORVASTATIN CALCIUM 20 MG TABLET PO SCH (21:06)
[2022-08-21 21:32] LABS: GLUCOMETER DEV NAME(LOC) 3E.C; GLUCOSE,POINT OF CARE 122 MG/DL (70-110)
[2022-08-22 06:26] LABS: GLUCOMETER DEV NAME(LOC) 3E.C; GLUCOSE,POINT OF CARE 129 MG/DL (70-110)
[2022-08-22] MEDS: MetFORMIN HCL 500 MG TABLET PO SCH ×2 (07:33→16:23)
[2022-08-22] MEDS: FERROUS SULFATE 325 MG EC TABLET PO SCH ×2 (07:33→16:23)
[2022-08-22 08:18] VITALS: BP 124/62
[2022-08-22] MEDS: OMEGA-3/DHA/EPA/FISH OIL 1,000 MG CAPSULE PO SCH ×2 (08:32→16:23)
[2022-08-22] MEDS: DIVALPROEX SODIUM 500 MG DR TABLET PO SCH ×2 (08:32→20:13)
[2022-08-22] MEDS: SitaGLIPtin PHOSPHATE 50 MG TABLET PO SCH (08:32)
[2022-08-22] MEDS: RisperiDONE 1 MG TABLET PO SCH ×2 (08:32→20:13)
[2022-08-22] MEDS: CIPROFLOXACIN HCL 500 MG TABLET PO SCH ×2 (08:32→16:23)
[2022-08-22] MEDS: MULTIVITAMINS WITH MINERALS, THERAPEUTIC TABLET PO SCH (08:32)
[2022-08-22] MEDS: CHOLECALCIFEROL (VIT D3) 1,000 UNITS [25 MCG] TABLET PO SCH (08:32)
[2022-08-22] MEDS: FOLIC ACID 1 MG TABLET PO SCH (08:32)
[2022-08-22] MEDS: ASCORBIC ACID 500 MG TABLET PO SCH (08:33)
[2022-08-22 11:29] VITALS: BP 127/76
[2022-08-22 11:51] LABS: GLUCOMETER DEV NAME(LOC) 3E.C; GLUCOSE,POINT OF CARE 153 MG/DL (70-110)
[2022-08-22] MEDS: INSULIN LISPRO 100 UNITS/ML SQ PRN ×2 (12:05→17:27)
[2022-08-22 17:31] LABS: GLUCOMETER DEV NAME(LOC) 3E.C; GLUCOSE,POINT OF CARE 156 MG/DL (70-110)
[2022-08-22 20:05] VITALS: BP 126/64
[2022-08-22] MEDS: ATORVASTATIN CALCIUM 20 MG TABLET PO SCH (20:13)
[2022-08-22 21:55] LABS: GLUCOMETER DEV NAME(LOC) 3E.C; GLUCOSE,POINT OF CARE 117 MG/DL (70-110)
[2022-08-23 05:31] LABS: GLUCOMETER DEV NAME(LOC) 3E.C; GLUCOSE,POINT OF CARE 128 MG/DL (70-110)
[2022-08-23] MEDS: FERROUS SULFATE 325 MG EC TABLET PO SCH ×2 (06:49→16:26)
[2022-08-23] MEDS: MetFORMIN HCL 500 MG TABLET PO SCH ×2 (06:49→17:32)
[2022-08-23 08:00] VITALS: BP 124/70
[2022-08-23] MEDS: CIPROFLOXACIN HCL 500 MG TABLET PO SCH ×2 (08:16→16:26)
[2022-08-23] MEDS: MULTIVITAMINS WITH MINERALS, THERAPEUTIC TABLET PO SCH (08:16)
[2022-08-23] MEDS: FOLIC ACID 1 MG TABLET PO SCH (08:16)
[2022-08-23] MEDS: DIVALPROEX SODIUM 500 MG DR TABLET PO SCH ×2 (08:16→20:14)
[2022-08-23] MEDS: OMEGA-3/DHA/EPA/FISH OIL 1,000 MG CAPSULE PO SCH ×2 (08:16→16:26)
[2022-08-23] MEDS: CHOLECALCIFEROL (VIT D3) 1,000 UNITS [25 MCG] TABLET PO SCH (08:16)
[2022-08-23] MEDS: SitaGLIPtin PHOSPHATE 50 MG TABLET PO SCH (08:16)
[2022-08-23] MEDS: RisperiDONE 1 MG TABLET PO SCH ×2 (08:16→20:14)
[2022-08-23] MEDS: ASCORBIC ACID 500 MG TABLET PO SCH (08:17)
[2022-08-23 11:56] LABS: GLUCOMETER DEV NAME(LOC) 3E.C; GLUCOSE,POINT OF CARE 128 MG/DL (70-110)
[2022-08-23] MEDS: LACTOBAC ACID/BULG/BIFID/THERM TABLET PO SCH (12:11)
[2022-08-23 12:20] LABS: BASOPHILS % (AUTO) 0.8 % (0.0-2.0); EOSINOPHILS % (AUTO) 5.4 % (1.0-6.0); HEMATOCRIT 37.7 % (41-53); HEMOGLOBIN 12.4 g/dL (13.5-17.5); LYMPHOCYTES % (AUTO) 13.1 % (22.0-44.0); MEAN CORPUSCULAR HGB CONC 32.8 G/dL (31.0-37.0); MEAN CORPUSCULAR VOLUME 92 fL (80-100); MONOCYTES % (AUTO) 13.2 % (2.0-9.0); NEUTROPHILS # (AUTO) 5.3 K/uL (1.8-7.7); NEUTROPHILS % (AUTO) 67.5 % (40.0-70.0); PLATELET COUNT (AUTO) 322 K/uL (150-450); RED BLOOD CELL COUNT(AUTO) 4.12 MIL/uL (4.50-5.90); RED CELL DISTRIBUTION WIDTH 13.6 % (11.5-14.5)
[2022-08-23 12:37] LABS: ALANINE AMINOTRANSFERASE 33 U/L (12-78); ALBUMIN 1.9 g/dL (3.4-5.0); ALKALINE PHOSPHATASE 48 U/L (46-116); ANION GAP 10 mmol/L (8-16); ASPARTATE AMINOTRANSFERASE 21 U/L (15-37); BILIRUBIN,TOTAL 0.3 mg/dL (0.1-1.0); CALCIUM, TOTAL 8.8 mg/dL (8.8-10.5); CARBON DIOXIDE 27 mmol/L (22-29); CHLORIDE 94 mmol/L (98-107); CREATININE 0.84 mg/dL (0.60-1.30); GLOMERULAR FILTR. RATE CALC > 60 mL/min (>60); GLUCOSE,RANDOM 152 mg/dL (70-110); PHOSPHORUS 2.7 mg/dL (2.5-4.9); POTASSIUM 3.4 mmol/L (3.5-5.1); SODIUM SERUM 131 mmol/L (136-145); TOTAL PROTEIN, SERUM 7.7 g/dL (6.4-8.2)
[2022-08-23 16:36] LABS: GLUCOMETER DEV NAME(LOC) 3E.C; GLUCOSE,POINT OF CARE 157 MG/DL (70-110)
[2022-08-23] MEDS: INSULIN LISPRO 100 UNITS/ML SQ PRN ×2 (17:27→23:58)
[2022-08-23] MEDS: ATORVASTATIN CALCIUM 20 MG TABLET PO SCH (20:14)
[2022-08-23 20:57] VITALS: BP 118/72
[2022-08-24 00:10] LABS: GLUCOMETER DEV NAME(LOC) 3E.C; GLUCOSE,POINT OF CARE 154 MG/DL (70-110)
[2022-08-24 05:31] LABS: GLUCOMETER DEV NAME(LOC) 3E.C; GLUCOSE,POINT OF CARE 146 MG/DL (70-110)
[2022-08-24] MEDS: FERROUS SULFATE 325 MG EC TABLET PO SCH ×2 (06:34→17:53)
[2022-08-24] MEDS: MetFORMIN HCL 500 MG TABLET PO SCH ×2 (06:34→17:53)
[2022-08-24] MEDS: INSULIN LISPRO 100 UNITS/ML SQ PRN ×4 (06:42→21:10)
[2022-08-24 08:00] VITALS: BP 137/65
[2022-08-24] MEDS: CIPROFLOXACIN HCL 500 MG TABLET PO SCH ×2 (09:48→17:53)
[2022-08-24] MEDS: LACTOBAC ACID/BULG/BIFID/THERM TABLET PO SCH (09:48)
[2022-08-24] MEDS: ASCORBIC ACID 500 MG TABLET PO SCH (09:48)
[2022-08-24] MEDS: SitaGLIPtin PHOSPHATE 50 MG TABLET PO SCH (09:49)
[2022-08-24] MEDS: RisperiDONE 1 MG TABLET PO SCH ×2 (09:51→20:37)
[2022-08-24] MEDS: MULTIVITAMINS WITH MINERALS, THERAPEUTIC TABLET PO SCH (09:51)
[2022-08-24] MEDS: OMEGA-3/DHA/EPA/FISH OIL 1,000 MG CAPSULE PO SCH ×2 (09:51→17:53)
[2022-08-24] MEDS: DIVALPROEX SODIUM 500 MG DR TABLET PO SCH ×2 (09:51→20:37)
[2022-08-24] MEDS: CHOLECALCIFEROL (VIT D3) 1,000 UNITS [25 MCG] TABLET PO SCH (09:51)
[2022-08-24] MEDS: FOLIC ACID 1 MG TABLET PO SCH (09:52)
[2022-08-24 17:00] LABS: GLUCOMETER DEV NAME(LOC) 3E.C; GLUCOSE,POINT OF CARE 147 MG/DL (70-110)
[2022-08-24 20:35] LABS: GLUCOMETER DEV NAME(LOC) 3E.C; GLUCOSE,POINT OF CARE 158 MG/DL (70-110)
[2022-08-24] MEDS: ATORVASTATIN CALCIUM 20 MG TABLET PO SCH (20:37)
[2022-08-24 21:13] VITALS: BP 133/76
[2022-08-25 06:21] LABS: GLUCOMETER DEV NAME(LOC) 3E.C; GLUCOSE,POINT OF CARE 115 MG/DL (70-110)
[2022-08-25] MEDS: INSULIN LISPRO 100 UNITS/ML SQ PRN ×2 (06:37→11:51)
[2022-08-25] MEDS: FERROUS SULFATE 325 MG EC TABLET PO SCH (06:42)
[2022-08-25] MEDS: MetFORMIN HCL 500 MG TABLET PO SCH (06:43)
[2022-08-25 08:00] VITALS: BP 133/71
[2022-08-25] MEDS: CIPROFLOXACIN HCL 500 MG TABLET PO SCH (08:15)
[2022-08-25] MEDS: LACTOBAC ACID/BULG/BIFID/THERM TABLET PO SCH (08:16)
[2022-08-25] MEDS: CHOLECALCIFEROL (VIT D3) 1,000 UNITS [25 MCG] TABLET PO SCH (08:16)
[2022-08-25] MEDS: SitaGLIPtin PHOSPHATE 50 MG TABLET PO SCH (08:16)
[2022-08-25] MEDS: DIVALPROEX SODIUM 500 MG DR TABLET PO SCH (08:16)
[2022-08-25] MEDS: RisperiDONE 1 MG TABLET PO SCH (08:16)
[2022-08-25] MEDS: OMEGA-3/DHA/EPA/FISH OIL 1,000 MG CAPSULE PO SCH (08:16)
[2022-08-25] MEDS: MULTIVITAMINS WITH MINERALS, THERAPEUTIC TABLET PO SCH (08:16)
[2022-08-25] MEDS: ASCORBIC ACID 500 MG TABLET PO SCH (08:32)
[2022-08-25] MEDS: FOLIC ACID 1 MG TABLET PO SCH (08:32)
[2022-08-25 11:40] LABS: GLUCOMETER DEV NAME(LOC) 3E.I 2; GLUCOSE,POINT OF CARE 158 MG/DL (70-110)
== END 2022-08-25 13:00 | disposition home or self-care (01) | DRG 885 ==
LOC: EMS 15:30 → 3EX 08-04 00:30
PROVIDERS: ADMIT Psychiatry & Neurology Psychiatry; ATTEND Psychiatry & Neurology Psychiatry
DX: F25.9 Schizoaffective disorder, unspecified (principal); E87.1 Hypo-osmolality and hyponatremia; E11.9 Type 2 diabetes mellitus without complications; Z20.822 Contact with and (suspected) exposure to COVID-19; I10 Essential (primary) hypertension; R74.01 Elevation of levels of liver transaminase levels; R26.9 Unspecified abnormalities of gait and mobility; K21.9 Gastro-esophageal reflux disease without esophagitis; R62.7 Adult failure to thrive; Z68.21 Body mass index [BMI] 21.0-21.9, adult
CPT/HCPCS: 73521; 76770; 80053; 80061; 80307; 81001; 82962; 83036; 83735; 84100; 84443; 85025; 87086; 87186; 99285; G0378; G0480